=== PATIENT | male | born 1950 | race Caucasian/White ===

== ENCOUNTER → 2016-10-16 | Outpatient (CLI) | payer OTHER ==
[~2016-10-16] MED LIST: AMLO-114 PO; APIX1TAB3 PO; CINN500T PO; FLEC50TA20 PO; GLUCTAB7 PO; METO100T44 PO; MONT1TAB5 PO; OMEGCAP2 PO; PARO1TAB27 PO; ROSU20TA PO; XOPENEX INH
[2016-10-16 12:30] LABS: URINE APPEARANCE CLEAR (CLEAR); URINE BILIRUBIN NEG (NEG); URINE COLOR YELLOW; URINE EPITHELIAL CELL AUTO 0-5 /lpf (0-5); URINE NITRITE NEG (NEG); URINE SPECIFIC GRAVITY 1.021 (1.000-1.030); UROBILINOGEN NEG (NEG); ZZUR CULT IF INDIC CLEAN CATCH NO
[2016-10-16 12:36] LABS: MANUAL MICROSCOPIC REQUIRED? NO; REVIEW REQ? NO
[2016-10-16 12:38] LABS: MEAN CELL VOLUME 93.6 fL (80-100); MEAN CORPUSCULAR HGB CONC 34.2 g/dl (32-36); PLATELET COUNT 129 K/uL (130-400); RED BLOOD COUNT 5.34 M/uL (4.7-6.1)
[2016-10-16 13:01] LABS: BASO % 0.3 %; BASO ABS # 0.02 K/uL (0-0.2); COMPLETE YES; IG% 0.2 %; LARGE PLATELETS 1+; LYMPH % 20.5 %; LYMPH ABS # 1.21 K/uL (1.2-3.4); MONO % 8.8 %; NEUT % 68.2 %
[2016-10-16 13:24] LABS: ESTIMATED AVERAGE GLUCOSE 111 mg/dl; HA1C FLAG Normal (Normal)
[2016-10-16 13:34] LABS: ALT/SGPT 33 U/L (12-78); BLOOD UREA NITROGEN 18 mg/dl (7-18); CARBON DIOXIDE 26 mmol/L (21-32); CHLORIDE 109 mmol/L (98-107); CHOLESTEROL 165 mg/dl (0-200); GLUCOSE 109 mg/dl (70-99); POTASSIUM 4.3 mmol/L (3.5-5.1); SODIUM 144 mmol/L (136-145); TRIGLYCERIDES 219 mg/dl (0-150); VERY LOW DENSITY LIPOPROT CALC 44 mg/dl
[2016-10-16 13:36] LABS: CALCIUM 8.9 mg/dl (8.5-10.1)
[2016-10-16 13:59] LABS: ALB/GLOB RATIO 1.2 (0.9-2); ALKALINE PHOSPHATASE 53 U/L (45-117); AST/SGOT 21 U/L (15-37); CHOLESTEROL/HDL RATIO 4.7; HDL CHOLESTEROL 35 mg/dl; LDL CHOLESTEROL CALCULATED 86 mg/dl
== END | disposition home or self-care (01) ==
LOC: C.LABBFT 08:39
PROVIDERS: ATTEND Internal Medicine
DX: Z11.59 Encounter for screening for other viral diseases (principal); I48.91 Unspecified atrial fibrillation; R73.03 Prediabetes; E78.5 Hyperlipidemia, unspecified; E55.9 Vitamin D deficiency, unspecified

== ENCOUNTER → 2016-10-26 | Outpatient (CLI) | payer OTHER | END | disposition home or self-care (01) | LOC: C.LABBFT 08:56 | PROVIDERS: ATTEND Internal Medicine | DX: R31.29 Other microscopic hematuria (principal) ==

== ENCOUNTER → 2016-12-15 | Outpatient (CLI) | payer OTHER ==
[~2016-12-15] MED LIST changes: +OPTIRAY 320 IV PRN
--- NOTE | 2016-12-15 13:31 | DIAGNOSTIC IMAGING REPORT ---
CT ABD/PELVIS COMBO WITH ORAL CLINICAL HISTORY: R31.29 Microscopic [id number] COMPARISON STUDY: December 2007 TECHNIQUE: Unenhanced images were obtained to the abdomen and pelvis. The patient was injected with 50 cc of Optiray 320. Findings 5 minute delay, the patient was rescanned in a dynamic helical fashion during the additional administration of 44 cc of Optiray 320 CT DOSE: 2625.80 mGy.cm FINDINGS: Lower chest: There are minimal dependent atelectatic changes Liver: The contrast-enhanced liver is normal in size, contour, and attenuation. There is no intrahepatic biliary ductal dilatation. The hepatic veins and portal veins are patent. Gallbladder: Surgically absent Spleen: Normal in size and attenuation. Pancreas: Unremarkable. Adrenal glands: Unremarkable. Kidneys: No renal, ureteral, or bladder calculi are visualized. There is a 5 mm left renal cortical hypodensity likely representing a cyst. No collecting system or ureteral lesions are visualized. Bowel: There are no transition zones indicate bowel obstruction. There is colonic diverticulosis. There are no acute peridiverticular inflammatory changes. The appendix is not visualized with certainty. There are no findings to indicate acute appendicitis. Peritoneum: There is no intraperitoneal free air or abdominal ascites. Vasculature: The abdominal aorta is normal in course and caliber. Adenopathy: None. Pelvic viscera: The bladder, and pelvic viscera are unremarkable. Skeletal structures: No destructive osseous lesions are seen. IMPRESSION: 1. No renal, ureteral, or bladder calculi identified 2. No solid renal masses identified 3. No uroepithelial lesions identified 4. Diverticulosis. No evidence of acute diverticulitis. Electronically signed by: Elliot Givens M.D. 12/15/2016 1:30 PM Dictated Date/Time: 12/15/2016 1:24 PM
== END | disposition home or self-care (01) ==
LOC: C.CTS 11:34
PROVIDERS: ATTEND Internal Medicine
DX: R31.29 Other microscopic hematuria (principal); N40.1 Benign prostatic hyperplasia with lower urinary tract symptoms

== ENCOUNTER → 2016-12-27 | Outpatient (CLI) | payer OTHER ==
[~2016-12-27] MED LIST changes: -METO100T44 PO; +METO1TAB69 PO; -OPTIRAY 320 IV PRN
[2016-12-27 12:26] LABS: BASO % 0.3 %; BASO ABS # 0.02 K/uL (0-0.2); COMPLETE YES; EOS % 5.6 %; HEMATOCRIT 47.3 % (42-52); IG% 0.2 %; LYMPH % 23.5 %; LYMPH ABS # 1.52 K/uL (1.2-3.4); MEAN CORPUSCULAR HEMOGLOBIN 30.7 pg (25-34); MEAN CORPUSCULAR HGB CONC 33.4 g/dl (32-36); MONO % 11.9 %; NEUT % 58.5 %; PLATELET COUNT 135 K/uL (130-400); RED BLOOD COUNT 5.14 M/uL (4.7-6.1); WHITE BLOOD COUNT 6.47 K/uL (4.8-10.8)
== END | disposition home or self-care (01) ==
LOC: C.LABBFT 08:08
PROVIDERS: ATTEND Internal Medicine Hematology & Oncology
DX: D75.1 Secondary polycythemia (principal)

== ENCOUNTER → 2017-04-11 | Outpatient (CLI) | payer BC | END | disposition home or self-care (01) | LOC: C.LABBFT 08:49 | PROVIDERS: ATTEND Internal Medicine | DX: R31.29 Other microscopic hematuria (principal); E78.5 Hyperlipidemia, unspecified ==

== ENCOUNTER → 2017-06-29 | Outpatient (CLI) | payer BC ==
[~2017-06-29] MED LIST changes: -AMLO-114 PO; +AMLO10TA3 PO; +METO100T44 PO; -METO1TAB69 PO
--- NOTE | 2017-06-29 14:48 | DIAGNOSTIC IMAGING REPORT ---
TWO VIEW CHEST CLINICAL HISTORY: Cough. FINDINGS: PA and lateral chest radiographs are compared to study dated . The heart is top normal for projection and there is atherosclerotic calcification of the thoracic aorta. Chronic interstitial thickening is similar to previous. More focal airspace opacities are present at the left lung base in the retrocardiac region. No pleural effusion is identified. There is no pneumothorax. The skeletal structures are osteopenic. The bony thorax appears intact. Surgical clips are noted in the upper abdomen. IMPRESSION: Airspace opacities are present the left lung base. The appearance is suspicious for pneumonia. Clinical correlation will be required and radiographic follow-up to resolution is recommended. Electronically signed by: Morris Burns M.D. 06/29/2017 2:47 PM Dictated Date/Time: 06/29/2017 2:46 PM
== END | disposition home or self-care (01) ==
LOC: C.RAD1850 14:39
PROVIDERS: ATTEND Internal Medicine
DX: R05 Cough (principal)

== ENCOUNTER → 2017-07-26 | Outpatient (CLI) | payer BC ==
[~2017-07-26] MED LIST changes: +AMLO-114 PO; -AMLO10TA3 PO
--- NOTE | 2017-07-26 08:52 | DIAGNOSTIC IMAGING REPORT ---
CHEST 2 VIEWS ROUTINE CLINICAL HISTORY: 18.9 CAP (community acquired pneumonia)Treated for pneumonia - f dyspnea COMPARISON STUDY: 06/29/2017 FINDINGS: Mild stable cardiomegaly. Lungs are clear. Diaphragms smooth. Costophrenic angles are sharp. IMPRESSION: Mild stable cardiomegaly. Otherwise negative study. The above report was generated using voice recognition software. It may contain grammatical, syntax or spelling errors. Electronically signed by: Jim Garcia M.D. 07/26/2017 8:51 AM Dictated Date/Time: 07/26/2017 8:50 AM
== END | disposition home or self-care (01) ==
LOC: C.RAD1850 08:35
PROVIDERS: ATTEND Internal Medicine
DX: J18.9 Pneumonia, unspecified organism (principal)

== ENCOUNTER → 2017-08-20 | Outpatient (CLI) | payer BC ==
[2017-08-20 12:37] LABS: BASO % 0.5 %; BASO ABS # 0.03 K/uL (0-0.2); EOS ABS # 0.18 K/uL (0-0.5); HEMATOCRIT 45.5 % (42-52); HEMOGLOBIN 15.4 g/dL (14.0-18.0); IG# 0.01 K/uL (0.00-0.02); LYMPH % 18.7 %; LYMPH ABS # 1.13 K/uL (1.2-3.4); MEAN CELL VOLUME 92.1 fL (80-100); MEAN CORPUSCULAR HEMOGLOBIN 31.2 pg (25-34); MEAN CORPUSCULAR HGB CONC 33.8 g/dl (32-36); MEAN PLATELET VOLUME 11.7 fL (7.4-10.4); MONO % 8.9 %; MONO ABS # 0.54 K/uL (0.11-0.59); NEUT % 68.7 %; NEUT ABS # 4.15 K/uL (1.4-6.5); PLATELET COUNT 124 K/uL (130-400); RED CELL DISTRIBUTION WIDTH CV 14.6 % (11.5-14.5); RED CELL DISTRIBUTION WIDTH SD 49.3 fL (36.4-46.3); WHITE BLOOD COUNT 6.04 K/uL (4.8-10.8)
== END | disposition home or self-care (01) ==
LOC: C.LABBFT 08:31
PROVIDERS: ATTEND Internal Medicine Hematology & Oncology
DX: D75.1 Secondary polycythemia (principal)